=== PATIENT | male | born 1960 | race African-American/Black ===

== ENCOUNTER 2017-08-05 05:18 | Inpatient (IN) | payer OTHER ==
[~2017-08-05] VITALS: Ht 167.6 cm; Wt 90.7 kg
[2017-08-05] VITALS (16 sets, daily range): BP systolic 91–145; BP diastolic 54–93
[2017-08-05] MEDS ORDERED: ATORVASTATIN CA40 MG ORAL (06:19)
[2017-08-05] MEDS ORDERED: LISINOPRIL2.5 MG ORAL (06:19)
[2017-08-05] MEDS ORDERED: TRAMADOL HCL50 MG ORAL (06:19)
[2017-08-05] MEDS ORDERED: Surgicel 4in x 8in TOPIC ONE (06:34)
[2017-08-05] MEDS ORDERED: Thrombin 5000 units TOPIC ONE (06:34)
[2017-08-05] MEDS ORDERED: Vancomycin 1gm inj IVPB ONE (06:35)
[2017-08-05] MEDS ORDERED: Bacitracin 50000 Units Vial ONE (06:35)
[2017-08-05] MEDS ORDERED: Ropivacaine 5mg/ml Vial 30ml INJ ONE (06:35)
[2017-08-05] MEDS ORDERED: NS Irrig 1000ml ONE (07:00)
[2017-08-05] MEDS ORDERED: Glycopyrrolate 0.2mg/ml 1ml Vial ONE (07:00)
[2017-08-05] MEDS ORDERED: Ketorolac 30mg Inj ONE (07:00)
[2017-08-05] MEDS ORDERED: Zemuron 50mg/5ml Inj IV ONE (07:00)
[2017-08-05] MEDS ORDERED: Phenylephrine 10mg/ml Vial ONE (07:00)
[2017-08-05] MEDS ORDERED: Lidocaine 1% MPF 10mg/ml 5ml ONE (07:00)
[2017-08-05] MEDS ORDERED: Dexamethasone 4mg/ml vial ONE (07:00)
[2017-08-05] MEDS ORDERED: Morphine Sulfate 10mg/ml Inj ONE (07:00)
[2017-08-05] MEDS ORDERED: Sodium Chloride 10ml vial INJ ONE (07:00)
[2017-08-05] MEDS ORDERED: Propofol 200mg/20ml IV ONE (07:00)
[2017-08-05] MEDS ORDERED: Succinylcholine 20mg/ml 10ml vial ONE (07:00)
[2017-08-05] MEDS ORDERED: ceFAZolin sod 2 GM in D5W 110 ML IVPB ONE (07:00)
[2017-08-05] MEDS ORDERED: Sterile Water Irrig 1000ml IRRIG ONE (07:00)
[2017-08-05] MEDS ORDERED: Midazolam 2mg/2ml Inj ONE (07:00)
[2017-08-05] MEDS ORDERED: fentaNYL 100 mcg/2 mL IV ONE (07:00)
[2017-08-05] MEDS ORDERED: Neostigmine 1mg/ml 10ml Inj ONE (07:00)
[2017-08-05] MEDS ORDERED: LR 1000ml ONE (07:00)
[2017-08-05] MEDS ORDERED: ceFAZolin 2gm/D5W 50ml Premix IV ONE (07:00)
[2017-08-05] MEDS ORDERED: Propofol 1,000mg/ 100ml btl IV ONE (07:00)
--- NOTE | 2017-08-05 07:13 | Pre-Procedure Note/Attestation ---
Pre-Procedure Note/Attestation Complete Prior to Procedure Planned Procedure: not applicable Procedure Narrative: Cervical 56 artifiical disc replacement and 67 Anterior cervical discectomy and fusion vs Cervical 67 artifiical disc replacement and 56 Anterior cervical discectomy and fusion Indications for Procedure Pre-Operative Diagnosis: herniation C45,56,67 Attestation I attest that I discussed the nature of the procedure; its benefits; risks and complications; and alternatives (and the risks and benefits of such alternatives ), prior to the procedure, with the patient (or the patient's legal corporate sales representative). I attest that, if there was a reasonable possibility of needing a blood transfusion, the patient (or the patient's legal corporate sales representative) was given the [place] [facility] [employer] [facility] standardized written summary, pursuant to the [place] Blood Safety Act ([place] Health and Safety Code # 1645, as amended). I attest that I re-evaluated the patient just prior to the surgery and that there has been no change in the patient's H&P, except as documented below: FLYNN GIBBS Aug 05, 2017 07:13
[2017-08-05] MEDS ORDERED: NS w/KCl 20mEq 1,000 ML IV SCH (07:14)
--- NOTE | 2017-08-05 07:14 | Brief Operative Note ---
Immediate Post Operative Note Operative Note Chief Complaint: neck pain bilateral hand numbness Pre-op Diagnosis: herniation C45,56,67 Procedure: Cervical 56 artifiical disc replacement and 67 Anterior cervical discectomy and fusion Post-op Diagnosis: same as pre-op Findings: consistent w/pre-op dx studies Surgeon: Jamil 911 Telecommunicator: Jody Anesthesiologist: RYAN Anesthesia: general Specimen: none Complications: none Estimated Blood Loss: minimal Drains: none Implant(s) used?: Yes - prodisc c sz5, interlock sz 6 FLYNN GIBBS Aug 05, 2017 07:14
[2017-08-05] MEDS ORDERED: Norco 5mg/325mg tab ORAL PRN ×2 (07:15→12:00)
[2017-08-05] MEDS ORDERED: Naloxone 0.4mg/ml Inj IVP PRN ×2 (07:15→12:00)
[2017-08-05] MEDS ORDERED: Norco 7.5mg/325mg tab ORAL PRN ×3 (07:15→12:00)
[2017-08-05] MEDS ORDERED: Chloraseptic Spray 20mL Bottle ORAL PRN ×2 (07:15→12:00)
[2017-08-05] MEDS ORDERED: HYDROmorphone 1mg/ml Carpuject SUBQ PRN ×2 (07:15→12:00)
[2017-08-05] MEDS ORDERED: HYDROmorphone 1mg/ml Carpuject IVP PRN ×2 (07:15→12:00)
[2017-08-05] MEDS ORDERED: Metoclopramide 10mg/2ml Inj IVP PRN ×2 (07:15→12:00)
[2017-08-05] MEDS ORDERED: LR 1000ml 1,000 ML IVLG SCH (08:25)
--- NOTE | 2017-08-05 08:25 | Anethesia Preoperative Eval ---
Anesthesia Pre-op PMH/ROS General Date of Evaluation: Aug 05, 2017 Time of Evaluation: 07:02 Anesthesiologist: Stephen ASA Score: ASA 2 Mallampati Score Class I : Soft palate, uvula, fauces, pillars visible Class II: Soft palate, uvula, fauces visible Class III: Soft palate, base of uvula visible Class IV: Only hard plate visible Mallampati Classification: Class III Surgeon: Jamil Diagnosis: Cervical radiculopathy Surgical Procedure: ACDF C5-C7 Anesthesia History: none Family History: no anesthesia problems Allergies: Coded Allergies: No Known Allergies (Unverified , 08/04/17) Medications: see eMAR Past Medical History Cardiovascular: Reports: HTN, Denies: CAD, [place], valve dz, arrhythmia, other Pulmonary: Denies: asthma, COPD, [place], other Gastrointestinal/Genitourinary: Reports: GERD, Denies: CRI, ESRD, other Neurologic/Psychiatric: Reports: other - chronic pain, Denies: dementia, CVA, depression/anxiety, TIA Endocrine: Denies: DM, hypothyroidism, steroids, other HEENT: Denies: cataract (L), cataract (R), glaucoma, [place] (L), [place] (R), other Hematology/Immune: Denies: anemia, DVT, bleeding disorder, other Musculoskeletal/Integumentary: Denies: OA, RA, DJD, DDD, edema, other Other: other - overweight PMH Narrative: as above PSxH Narrative: Posterior cervical fusion, knee scope Anesthesia Pre-op Phys. Exam Physician Exam Last Vital Signs Date Time Temp Pulse Resp B/P (MAP) Pulse Ox O2 Delivery O2 Flow Rate FiO2 08/05/17 06:04 97.9 46 18 145/83 100 Room Air Constitutional: NAD Neurologic: CN 2-12 intact Cardiovascular: RRR, no M/R/G Respiratory: CTA Gastrointestinal: S/NT/ND Airway Exam Mallampati Score: Class III MO: limited Neck: Stiff restricted movements ROM: limited Teeth: missing Dentures: no upper, no lower Anesthesia Pre-op A/P Labs see chart Studies Pre-op Studies: EKG - NSR Risk Assessment & Plan Assessment: ASA 2 Plan: GA with ETT Neuromonitoring Status Change Before Surgery: No Pre-Antibiotics Drug: Ancef 2 gr. Given Within 1 Hr of Incision: Yes Time Given: 07:48 JOSELIN EVANS M.D. Aug 05, 2017 08:25
[2017-08-05] MEDS ORDERED: Midazolam 2mg/2ml Inj IVP PRN (08:30)
[2017-08-05] MEDS ORDERED: Hydromorphone 0.5mg/0.5ml inj IVP PRN (08:30)
[2017-08-05] MEDS ORDERED: DiphenhydrAMINE 50mg/ml Inj IVP PRN (08:30)
[2017-08-05] MEDS ORDERED: Meperidine 50mg/ml Inj(FOR RIGORS ONLY) IV PRN (08:30)
[2017-08-05] MEDS ORDERED: Ketorolac 30mg Inj IV PRN (08:30)
[2017-08-05] MEDS ORDERED: Docusate 100mg cap ORAL SCH (09:00)
--- NOTE | 2017-08-05 11:04 | Immediate Post-Op Evaluation ---
Immediate Post-Op Evalulation Immediate Post-Op Evalulation Procedure: ACDF C5-6 C6-7 Date of Evaluation: Aug 05, 2017 Time of Evaluation: 11:02 IV Fluids: 800 Blood Products: none Estimated Blood Loss: 50 Urinary Output: 350 Blood Pressure Systolic: 93 Blood Pressure Diastolic: 54 Pulse Rate: 77 Respiratory Rate: 20 O2 Sat by Pulse Oximetry: 100 Temperature (Fahrenheit): 97.5 Pain Score (1-10): 2 Nausea: No Vomiting: No Complications none Patient Status: reacts, patent, extubated, none Hydration Status: adequate JOSELIN EVANS M.D. Aug 05, 2017 11:04
[2017-08-05] MEDS ORDERED: Dexamethasone 4mg/ml vial IVP SCH ×2 (12:00→14:30)
[2017-08-05] MEDS ORDERED: Milk of Magnesia 30ml Ud ORAL PRN (12:00)
[2017-08-05] MEDS: NS w/KCl 20mEq 1,000 ML IV SCH ×2 (13:54→23:20)
--- NOTE | 2017-08-05 13:55 | Consultation ---
History of Present Illness General Date patient seen: Aug 05, 2017 Time patient seen: 13:55 Chief Complaint: intractable neck pain w/ bilateral hand numbness Referring physician: Dr. Negron Reason for Consultation: med johny Present Illness HPI 56y/o male with pmh of HTN, HLD, cervical disc herniation who presents s/p cervical 56 artifiical disc replacement and 67 Anterior cervical discectomy and fusion earlier today. No periop or postop complications. Postop pain appears well controlled. Denies f/c, n/v, d/c, chest pain, SOB. Allergies: Coded Allergies: No Known Allergies (Unverified , 08/04/17) Medication History Scheduled Atorvastatin Calcium* (Atorvastatin Calcium*), 40 MG ORAL BEDTIME, (Reported) Lisinopril* (Lisinopril*), 5 MG ORAL DAILY, (Reported) Scheduled PRN Tramadol Hcl* (Ultram*), 50 MG ORAL PRN PRN for For Pain, (Reported) Patient History History Provided By: Patient, Medical Record, PMD Healthcare decision maker judi micki(sister) Resuscitation status Full Code Advanced Directive on File No Past Medical/Surgical History Past Medical/Surgical History: (1) HTN (hypertension) (2) HLD (hyperlipidemia) (3) GERD (gastroesophageal reflux disease) (4) HNP (herniated nucleus pulposus), cervical Family History Family History: (1) No significant family history Social History Social History: (1) No significant social history Review of Systems ROS Narrative CONSTITUTIONAL: No weight loss, fever, chills, weakness or fatigue. HEENT: Eyes: No visual loss, blurred vision, double vision or yellow sclerae. Ears, Nose, Throat: No hearing loss, sneezing, congestion, runny nose, +sore throat. SKIN: No rash or itching. CARDIOVASCULAR: No chest pain, chest pressure or chest discomfort. No palpitations or edema. RESPIRATORY: No shortness of breath, cough or sputum. GASTROINTESTINAL: No anorexia, nausea, vomiting or diarrhea. No abdominal pain or blood. NEUROLOGICAL: No headache, dizziness, syncope, paralysis, ataxia, numbness or tingling in the extremities. No change in bowel or bladder control. MUSCULOSKELETAL: No muscle, back pain, joint pain or stiffness. HEMATOLOGIC: No anemia, bleeding or bruising. LYMPHATICS: No enlarged nodes. No history of splenectomy. PSYCHIATRIC: No history of depression or anxiety. ENDOCRINOLOGIC: No reports of sweating, cold or heat intolerance. No polyuria or polydipsia. ALLERGIES: No history of asthma, hives, eczema or rhinitis. Physical Exam Physical Exam Narrative General: alert, cooperative, no distress, appears stated age Head: normocephalic, without obvious abnormality, atraumatic Eyes: conjunctivae/corneas clear. PERRL, EOM's intact Throat: lips, mucosa, and tongue normal. MMM Neck: supple, symmetrical, trachea midline, and no JVD Lungs: clear to auscultation bilaterally Heart: regular rate and rhythm, S1, S2 normal, no murmur, click, rub or gallop Abdomen: soft, non-tender, non-distended, bowel sounds normal; no masses or organomegaly Extremities: extremities normal, atraumatic, no cyanosis or edema Pulses: 2+ and symmetric Skin: skin color, texture, turgor normal; no rashes or lesions Dressing c/d/i Neurologic: grossly normal, no focal deficits Last 24 Hour Vital Signs Date Time Temp Pulse Resp B/P (MAP) Pulse Ox O2 Delivery O2 Flow Rate FiO2 08/05/17 13:00 98.0 75 20 125/75 99 Nasal Cannula 2.0 08/05/17 12:35 98.0 72 23 115/73 99 Nasal Cannula 3.0 08/05/17 12:25 79 23 124/71 99 Nasal Cannula 3.0 08/05/17 12:10 63 14 110/60 100 Nasal Cannula 3.0 08/05/17 11:55 63 14 115/60 100 Nasal Cannula 3.0 08/05/17 11:40 61 17 110/56 100 Nasal Cannula 3.0 08/05/17 11:25 62 17 113/54 100 Nasal Cannula 3.0 08/05/17 11:10 80 17 110/62 100 Nasal Cannula 3.0 08/05/17 11:04 77 20 100 08/05/17 11:02 72 16 93/54 100 Simple Mask 6.0 08/05/17 10:57 84 19 91/57 100 Simple Mask 6.0 08/05/17 10:52 97.5 84 23 103/61 100 Simple Mask 6.0 08/05/17 06:04 97.9 46 18 145/83 100 Room Air Intake and Output 08/05/17 08/06/17 19:00 07:00 Intake Total 1000 ml Output Total 400 ml Balance 600 ml Intake IV Total 1000 ml Output Urine Total 350 ml Estimated Blood Loss 50 ml Height (Feet): 5 Height (Inches): 6.00 Weight (Pounds): 200 Medications Current Medications Medications (Trade) Dose Ordered Sig/Francisca Route PRN Reason Start Time Stop Time Status Last Admin Dose Admin Acetaminophen (Tylenol) 650 mg Q4H PRN ORAL headache or temp>101 08/05/17 12:00 09/04/17 11:59 Acetaminophen/ Hydrocodone Bitart ([place] 5/325) 1 tab Q3H PRN ORAL pain score 1-3 08/05/17 12:00 08/12/17 11:59 Acetaminophen/ Hydrocodone Bitart ([place] 7.5/325) 1 ea Q3H PRN ORAL pain score 4-6 08/05/17 12:00 08/12/17 11:59 Acetaminophen/ Hydrocodone Bitart ([place] 7.5/325) 2 ea Q3H PRN ORAL pain scale 7-10 08/05/17 12:00 08/12/17 11:59 Acetazolamide (Diamox 500mg Inj) 250 mg EVERY 6 HOURS IVP 08/05/17 12:00 09/04/17 11:59 UNV Carisoprodol (Soma) 350 mg TIDPRN PRN ORAL SPASM 08/05/17 12:00 09/04/17 11:59 Cefazolin Sodium 1 gm/Dextrose 55 ml @ 110 mls/hr Q8H IV 08/05/17 16:00 08/06/17 08:29 Cetylpyridinium Chloride (Cepacol) 1 lozenge EVERY 2 HOURS PRN JYOTI To Patient Comfort 08/05/17 12:00 09/04/17 11:59 Dexamethasone Sodium Phosphate (Decadron 4mg/ml vial) 4 mg Q6H IVP 08/05/17 16:30 08/06/17 10:31 Diphenhydramine HCl (Benadryl) 25 mg Q15M PRN IVP Itching 08/05/17 08:30 08/05/17 14:00 Docusate Sodium (Colace) 100 mg TWICE A DAY ORAL 08/05/17 18:00 09/04/17 17:59 Hydromorphone HCl (Dilaudid) 0.5 mg Q5M PRN IVP Severe Pain (Pain Scale 7-10) 08/05/17 08:30 08/05/17 14:00 Hydromorphone HCl (Dilaudid) 1 mg Q2H PRN IVP Breakthrough Pain 08/05/17 12:00 08/12/17 11:59 Hydromorphone HCl (Dilaudid) 1 mg Q4H PRN SUBQ Mild Pain (Pain Scale 1-3) 08/05/17 12:00 08/12/17 11:59 Hydromorphone HCl (Dilaudid) 2 mg Q3H PRN SUBQ Severe Pain (Pain Scale 7-10) 08/05/17 12:00 08/12/17 11:59 Hydromorphone HCl (Dilaudid) 2 mg Q4H PRN SUBQ Moderate Pain (Pain Scale 4-6) 08/05/17 12:00 08/12/17 11:59 Ketorolac Tromethamine (Toradol 30mg) 30 mg Q1H PRN IV Severe Breakthru Pain (>7) 08/05/17 08:30 08/05/17 14:00 Magnesium Hydroxide (Mom) 30 ml QIDPRN PRN ORAL Constipation 08/05/17 12:00 09/04/17 11:59 Meperidine HCl (Demerol) 25 mg Q15M PRN IV chills 08/05/17 08:30 08/05/17 14:00 08/05/17 11:23 Metoclopramide HCl (Reglan) 10 mg Q6H PRN IVP Nausea & Vomiting 08/05/17 12:00 09/04/17 11:59 Midazolam HCl (Versed 2mg/2ml vial) 1 mg Q15M PRN IVP For Anxiety 08/05/17 08:30 08/05/17 14:00 Naloxone HCl (Narcan) 0.1 mg PRN PRN IVP RR<12/min, pt unarousable 08/05/17 12:00 09/04/17 11:59 Ondansetron HCl (Zofran) 4 mg Q1H PRN IVP Nausea & Vomiting 08/05/17 08:30 08/05/17 14:00 Ondansetron HCl (Zofran) 4 mg Q6H PRN IVP Nausea & Vomiting 08/05/17 12:00 09/04/17 11:59 Phenol/Menthol (Chloraseptic) 1 spray Q3H PRN ORAL To Patient Comfort 08/05/17 12:00 09/04/17 11:59 Prochlorperazine (Compazine) 10 mg Q6H PRN IVP Nausea & Vomiting 08/05/17 12:00 09/04/17 11:59 Sodium Chloride 1,000 ml @ 100 mls/hr Q10H IV 08/05/17 14:00 09/04/17 13:59 Temazepam (Restoril) 15 mg HSPRN PRN ORAL Insomnia 08/05/17 12:00 08/12/17 11:59 Assessment/Plan Problem List: (1) HNP (herniated nucleus pulposus), cervical ICD Codes: M50.20 - Other cervical disc displacement, unspecified cervical region SNOMED: 20303210 (2) HLD (hyperlipidemia) ICD Codes: E78.5 - Hyperlipidemia, unspecified SNOMED: 29027099 (3) HTN (hypertension) ICD Codes: I10 - Essential (primary) hypertension SNOMED: 15010289 (4) GERD (gastroesophageal reflux disease) ICD Codes: K21.9 - Gastro-esophageal reflux disease without esophagitis SNOMED: 164893160 Status: stable Assessment/Plan Appreciate surgery rec's s/p cervical 5-6 artificial disc replacement and 67 Anterior cervical discectomy and fusion on 08/05/17 Post operative recommendations include: - encourage mobilization/ambulation - encourage incentive spirometry to optimize pulmonary hygiene - DVT/GI prophylaxis as appropriate - PT/OT/ST - pain control, supportive care, bowel regimen Cont home meds: lipitor, lisinopril D/w pt, RN, SW/CM, surgery regarding mgmt and dispo Faviola Qiu M.D. Aug 05, 2017 13:55
[2017-08-05] MEDS ORDERED: ceFAZolin sod 1 GM in D5W 55 ML IV SCH (14:00)
[2017-08-05] MEDS: acetaZOLAMIDE 500mg Inj IVP SCH ×2 (15:10→21:54)
--- NOTE | 2017-08-05 15:34 | Diagnostic Imaging Report ---
Indication: PAIN, intraoperative Technique: Intraoperative images Comparison: None Findings: Initial localizer image demonstrates a needle projected over the C5 vertebral body. Subsequent images demonstrate a localizer tool at the C7-T1 disc. Subsequent images document anterior fusion at C5-6 and placement of a disc prosthesis at C6-7. Impression: Intraoperative imaging, as described
[2017-08-05] MEDS: ceFAZolin sod 1 GM in D5W 55 ML IV SCH ×2 (16:10→23:20)
[2017-08-05] MEDS: Dexamethasone 4mg/ml vial IVP SCH ×2 (16:10→20:35)
[2017-08-05] MEDS ORDERED: PERCOCET 5-3251 EACH ORAL (17:04)
[2017-08-05] MEDS ORDERED: ATIVAN1 MG ORAL (17:05)
[2017-08-05] MEDS ORDERED: CIPRO500 MG PO (17:06)
[2017-08-05] MEDS: Docusate 100mg cap ORAL SCH (17:18)
[2017-08-05] MEDS: Atorvastatin 20mg tab ORAL SCH (20:35)
[2017-08-05] MEDS: Norco 7.5mg/325mg tab ORAL PRN (23:21)
[2017-08-06] VITALS: BP 136/94
[2017-08-06] MEDS: acetaZOLAMIDE 500mg Inj IVP SCH ×4 (03:39→21:01)
[2017-08-06] MEDS: Norco 7.5mg/325mg tab ORAL PRN ×3 (03:39→15:07)
--- NOTE | 2017-08-06 03:45 | Operative Note - Dictated ---
DATE OF OPERATION: 08/05/2017 SURGEON: Gary Negron M.D., orthopedic spine surgeon. Internist Medical Doctor Md: Whitney PENA PREOPERATIVE DIAGNOSES: 1. Intractable neck pain. 2. Radiculopathy. 3. Herniation, C6-C7. 4. Neural foraminal stenosis, C6-C7. 5. Stenosis. POSTOPERATIVE DIAGNOSES: 1. Intractable neck pain. 2. Radiculopathy. 3. Herniation, C6-C7. 4. Neural foraminal stenosis, C6-C7. 5. Stenosis. PROCEDURE PERFORMED: 1. Anterior cervical discectomy and artificial disc replacement of C6-C7 using a Synthes Prodisc C size 5 height. 2. Anterior cervical discectomy and fusion of C56 with nuvasive interlock c and size 6 cage osteocell 1cc 2. Use of intraoperative microscope. 3. Motor evoked potential monitoring. 4. Somatosensory evoked potential monitoring. 5. Supervision and interpretation of fluoroscopy. COMPLICATIONS: egress of CSF fluid from C5-C6. ANESTHESIA: General. ANESTHESIOLOGIST: Ki Mitchell M.D. ESTIMATED BLOOD LOSS: Less than 100 mL. INDICATIONS FOR SURGERY: This patient is a 56-year-old male who has history of diagnoses as listed above. As a result of this, the patient sustained intractable neck pain, radiculopathy, herniation at C5-C6 and C6-C7, neural foraminal stenosis at C5-C6 and C6-C7, and stenosis. We tried a course of conservative management but despite this course, there was still a significant component of persistent, recalcitrant neck pain and arm pain. The MRI demonstrated significant neural foraminal compromise secondary to disc herniations at C5-C6 and C6-C7. We had a long discussion with Jorje regarding the risks and benefits of surgery. Our discussion included but was not limited to nonoperative management, chiropractic management, another epidural steroid injection as well as definitive management in the form of surgery. We recommended anterior cervical discectomy and artificial disc replacement at C6-C7 and anterior cervical discectomy and fusion at C5-C6 as final definitive management. We reviewed the risks and benefits of surgery with the patient. Our discussion included a comprehensive review of the clinical issues and the nature of the clinical decision. We reviewed the alternatives, including doing nothing. The patient elected to proceed accordingly with anterior cervical discectomy and artificial disc replacement of C6-C7 using a Synthes Prodisc C size 5 height and anterior cervical discectomy and fusion of C5-C6 using Nuvasive Interlock Cage, size 6, a total of six 13 mm screws, with the insertion of allograft Osteocel bone. We had a long discussion regarding the risks, alternatives, and benefits of surgery. Our description of the risks included a discussion in person as well as a signed consent which detailed all pertinent risks from the procedure itself. Briefly, our discussion included but was not limited to infection, bleeding, pseudarthrosis, spinal cord injury, neurovascular injury, dural tear, CSF leak, neuropathy, paralysis, permanent weakness/drop foot/drop arm, paresthesias, blindness, palsy, and weakness. The patient understood there may be a need for a revision surgery or additional procedures. Approach-related complications including dysphonia, dysphagia, blindness, permanent vocal cord and neural injury, hematoma, swallowing and breathing difficulty. Medical complications were reviewed including liver, kidney, shock, cardiopulmonary failure, anesthesia complications including , swelling, damage to the musculature, larynx/voice injury or loss, esophagus/throat, trachea, blood vessels and muscles/muscular sprain and lungs/pneumothorax during this surgical procedure; injury to deeper structures may be temporary or permanent. After this review of risks, the patient understood these and elected to proceed. A written and verbal consent was given. We discussed the pros and cons of all the alternatives. We discussed the uncertainties associated with the decision. Afterwards, I assessed the patient's understanding and explored their preferences. All questions were answered and no guarantees were given. Medical clearance was obtained prior to surgery. INTRAOPERATIVE FINDINGS: A broad-based disc herniation which was found posterior to a tear/rent in the posterior longitudinal ligament at C6-C7 causing a considerable amount of neural foraminal stenosis with significant encroachment on the neural foramina and spinal cord. There was a large tear and rent at C5-C6 on the left side which had migrated posterior to the longitudinal ligament and impacted, almost thinned the thecal sac itself, removal of which caused an egress of cerebrospinal fluid. At C6-C7, there was a large tear and rent in the posterior longitudinal ligament that was acute in nature and demonstrated herniated pulposus putting pressure on the neural foramina bilaterally . DESCRIPTION OF PROCEDURE: Under the benefit of general endotracheal anesthesia and with the assistance of the entire operative team, the patient was moved from the [facility] onto the operative table in the supine position. The head was secured and carefully positioned appropriately. Bilateral arms were secured with GelPads and foam and all bony prominences were padded. For the bilateral lower extremity, SCD and SIA hose were placed for DVT prophylaxis. A surgical timeout was called which corroborated our planned procedure of anterior cervical discectomy and artificial disc replacement of C6-C7 using a Synthes Prodisc C size 5 height. Preoperative antibiotics were administered within 30 minutes of the incision for antibiotic prophylaxis. Using lateral fluoroscopic radiography, the operative levels were delineated. Next the wound was prepped and draped with Chlorhexidine and sterile drapes. An incision was based on lateral fluoroscopy and we centered our incision at the C6-C7 interspace and next using a standard Lees-Singleton anterior-based approach, the incision was taken down through the skin and subcutaneous tissues until the vertebral bodies and their corresponding disc spaces were visualized. A needle was placed into the interspace to confirm placement of the operative interspace and we performed the remainder of procedure under microscopic visualization. Next, using a bipolar and Bovie cautery to ensure meticulous hemostasis, the longus colli was mobilized bilaterally and retractors were placed deep to the longus colli bilaterally to address retraction. Next we turned our attention to the radical anterior discectomy. This was initially performed at C6-C7 first by using a #15 blade scalpel followed by narrow pituitaries and a Microsect 5-B curette was used to denude the endplate of all cartilaginous tissue. Next using a Gig[employer] David AM8 drillbit, the vertebral endplates were denuded in a ofph-em-cixd and fshjg-uk-irnew fashion, and ultimately the posterior uncinate joints bilaterally and posterior osteophytic lips and margins causing central and lateral impingement were carefully denuded until visualization of the posterior longitudinal ligament was possible. An endplate preparation was performed in the exact same fashion using an intervertebral offset machine operator, sequential distraction was obtained throughout the disc space. We saw a tear/rent in the PLL and this was carefully mobilized and dissected using a Microsect 1-B curette until we visualized a broad-based disc herniation with compression of the spinal cord as well as neural foramina which was more significant on the left side. This neural foraminal compression was carefully resected using a Kerrison-1 and Kerrison-2 rongeurs until complete decompression of the spinal cord was visualized and complete decompression of the neural foramina and nerve root therein as well as the axilla and lateral margin of the nerve root was visualized and subsequently completely decompressed. We next turned our attention towards trialing our implant within the disc space. We initially tried size 5 and the Prodisc Cervical spacer fit well in regard to depth and width. This implant was opened and prepared. Next under direct visualization, I confirmed excellent fit in respect to the anterior and posterior vertebral bodies, the uncinate joints, and in regard to toggle. Once satisfied with this placement on serial AP and lateral fluoroscopy, I turned my attention towards cutting our carson. These were cut in the bones using a reciprocating drill and afterwards all free fragments of bone were irrigated. Next FloSeal was placed into the interspace and the implant was inserted using fluoroscopic guidance. Next the Synthes Prodisc C size 5 ADR was then carefully advanced and secured into the intervertebral space under direct visualization and with supervision of AP and lateral fluoroscopic views. SECOND LEVEL: 1. Anterior cervical discectomy and fusion of C5-C6 using Nuvasive Interlock Cage, size 6, a total of six 13 mm screws, with the insertion of allograft Osteocel bone. Next we turned our attention to the radical anterior discectomy. This was initially performed at C5-C6 first by using a #15 blade scalpel followed by narrow pituitaries and a micro-sect 5-B curette was used to denude the endplate of all cartilaginous tissue. Next using a Thucy David AM8 drillbit, the endplates were denuded in a almn-lb-lzro and layer by layer fashion, and ultimately the posterior uncinate joints bilaterally and posterior osteophytic lips and margins causing central and lateral impingement were carefully denuded until visualization of the posterior longitudinal ligament was possible. An endplate preparation was performed in the exact same fashion using an intervertebral offset machine operator, sequential distraction was obtained throughout the disc space. We saw a tear/rent in the PLL and this was carefully mobilized and dissected using a micro-set 1-B curette until we visualized a broad-based disc herniation with compression of the spinal cord as well as neural foramina which was more significant on the left. This neural foraminal compression was carefully resected using a Kerrison-1 and Kerrison-2 rongeurs until complete decompression of the spinal cord was visualized and complete decompression of the neural foramina and nerve root therein as well as the axilla and lateral margin of the nerve root was visualized and subsequently completely decompressed. At C5-C6, there was such severe pressure and it appeared that the disc material upon its removal from the C5-C6 interspace on the patient's left-hand side, upon removal of the herniated pulposus, there was noted to be a small egress of cerebrospinal fluid. There was no significant drainage of fluid present. This was addressed with a small piece of Duragen overlying with a larger piece of Duragen followed by less than 1cc of Tisseel and watertight closure was accomplished and I noted no further egress of CSF fluid was noted. We next turned our attention towards trialing our implant within the disc space. We initially tried size 5 and afterwards size 6 trial from the [employer], which appeared to be appropriate under AP and lateral fluoroscopy as well as in terms of its height, depth, width, and lack of toggle. The PEEK polyetheretherketone interbody cages were then both packed with allograft bone from Osteocel and local autograft bone matrix. Next these were then carefully advanced and secured into their intervertebral spaces under direct visualization and with supervision of AP and lateral fluoroscopic views. We next turned our attention towards plating. Plating was performed with WiWide Interlock-C plating system, a total of six screws, size 13 mm length were inserted and confirmed under AP and lateral fluoroscopy and confirmed to be in excellent position. After a finger sweep, we confirmed removal of all sponges. The retractor was removed and we next turned our attention to meticulous hemostasis with FloSeal and bipolar cautery. After the sponge and needle count was again found to be correct with our second count, we next turned our attention to closure. The wound was again copiously irrigated with antibiotic impregnated saline. Closure consisted of 4-0 clear nylon for the platysma, and 6-0 clear nylon for the superficial skin. Final skin closure and dressings consisted of Dermabond. Prior to final closure, a final radiograph was obtained which demonstrated the hardware was intact with excellent position throughout. The patient tolerated the procedure well. The patient was carefully extubated after the conclusion of surgery. We discussed the findings of the surgery with the family upon completion of the case. At this point, the patient was transferred to the spine floor for further observation. The patient tolerated the procedure well. The patient was carefully extubated after the conclusion of surgery. We discussed the findings of the surgery with the family upon completion of the case. At this point, the patient was transferred to the spine floor for further observation. Gary Negron M.D. DR: Kaitlin JOB#: [id number] CC: ELAINE
[2017-08-06 04:20] VITALS: BP 125/83
[2017-08-06] MEDS: Dexamethasone 4mg/ml vial IVP SCH ×2 (05:28→10:23)
[2017-08-06 08:00] VITALS: BP 124/69
[2017-08-06] MEDS: ceFAZolin sod 1 GM in D5W 55 ML IV SCH (08:25)
[2017-08-06] MEDS: Lisinopril 2.5mg tab ORAL SCH (08:27)
[2017-08-06] MEDS: Docusate 100mg cap ORAL SCH ×2 (08:27→18:19)
[2017-08-06] MEDS: NS w/KCl 20mEq 1,000 ML IV SCH ×3 (10:00→20:41)
[2017-08-06 12:00] VITALS: BP 157/89
--- NOTE | 2017-08-06 12:26 | General Progress Note ---
Assessment/Plan Problem List: (1) HNP (herniated nucleus pulposus), cervical ICD Codes: M50.20 - Other cervical disc displacement, unspecified cervical region SNOMED: 91466046 (2) HLD (hyperlipidemia) ICD Codes: E78.5 - Hyperlipidemia, unspecified SNOMED: 68139034 (3) HTN (hypertension) ICD Codes: I10 - Essential (primary) hypertension SNOMED: 61820739 (4) GERD (gastroesophageal reflux disease) ICD Codes: K21.9 - Gastro-esophageal reflux disease without esophagitis SNOMED: 384214991 Status: stable Assessment/Plan Appreciate surgery rec's s/p cervical 5-6 artificial disc replacement and 67 Anterior cervical discectomy and fusion on 08/05/17 Post operative recommendations include: - encourage mobilization/ambulation - encourage incentive spirometry to optimize pulmonary hygiene - DVT/GI prophylaxis as appropriate - PT/OT/ST - pain control, supportive care, bowel regimen Cont home meds: lipitor, lisinopril DC planning D/w pt, RN, SW/CM, surgery regarding mgmt and dispo Subjective Date patient seen: Aug 06, 2017 Time patient seen: 12:26 ROS Limited/Unobtainable: No Constitutional: Reports: no symptoms HEENT: Reports: no symptoms Cardiovascular: Reports: no symptoms Respiratory: Reports: no symptoms Gastrointestinal/Abdominal: Reports: no symptoms Genitourinary: Reports: no symptoms Neurologic/Psychiatric: Reports: no symptoms Endocrine: Reports: no symptoms Hematologic/Lymphatic: Reports: no symptoms Allergies: Coded Allergies: No Known Allergies (Unverified , 08/04/17) All Systems: reviewed and negative except above Subjective No acute o/n events POD#1 Pain controlled. Tolerating PO. Denies f/c, n/v, d/c, chest pain, SOB Passing gas Objective Last 24 Hour Vital Signs Date Time Temp Pulse Resp B/P (MAP) Pulse Ox O2 Delivery O2 Flow Rate FiO2 08/06/17 08:27 124/67 08/06/17 08:00 96.0 67 17 124/69 98 Room Air 08/06/17 04:38 97.4 08/06/17 04:25 Room Air 08/06/17 04:20 97.4 71 17 125/83 95 08/06/17 00:00 97.6 84 20 136/94 97 Room Air 08/05/17 20:40 Room Air 08/05/17 20:39 97.7 59 18 129/75 96 08/05/17 16:01 98 Nasal Cannula 2.0 08/05/17 16:01 97.3 91 20 139/93 98 08/05/17 15:05 98.0 08/05/17 14:30 98.7 76 19 128/87 100 08/05/17 14:30 100 Nasal Cannula 2.0 08/05/17 13:30 97.7 52 19 125/79 100 08/05/17 13:30 100 Nasal Cannula 2.0 08/05/17 13:00 98.0 75 20 125/75 99 Nasal Cannula 2.0 08/05/17 12:35 98.0 72 23 115/73 99 Nasal Cannula 3.0 Height (Feet): 5 Height (Inches): 6.00 Weight (Pounds): 200 Objective General: alert, cooperative, no distress, appears stated age Head: normocephalic, without obvious abnormality, atraumatic Eyes: conjunctivae/corneas clear. PERRL, EOM's intact Throat: lips, mucosa, and tongue normal. MMM Neck: supple, symmetrical, trachea midline, and no JVD Lungs: clear to auscultation bilaterally Heart: regular rate and rhythm, S1, S2 normal, no murmur, click, rub or gallop Abdomen: soft, non-tender, non-distended, bowel sounds normal; no masses or organomegaly Extremities: extremities normal, atraumatic, no cyanosis or edema Pulses: 2+ and symmetric Skin: skin color, texture, turgor normal; no rashes or lesions Dressing d/c/i Neurologic: grossly normal, no focal deficits Faviola Qiu M.D. Aug 06, 2017 12:26
--- NOTE | 2017-08-06 14:33 | 48 Hour Post Anesthesia Eval ---
Post Anesthesia Evaluation Procedure: ACDF C5-6 C6-7 Date of Evaluation: Aug 06, 2017 Time of Evaluation: 14:30 Blood Pressure Systolic: 145 0: 92 Pulse Rate: 67 Respiratory Rate: 16 Temperature (Fahrenheit): 98 O2 Sat by Pulse Oximetry: 99 Airway: patent Nausea: No Vomiting: No Pain Intensity: 0 Hydration Status: adequate Mental Status/LOC: patient returned to baseline Post-Anesthesia Complications: none Follow-up care needed: patient intructions given Isaac Turcios M.D. Aug 06, 2017 14:33
[2017-08-06 16:00] VITALS: BP 139/82
[2017-08-06] MEDS ORDERED: Tubing IV Secondary IV ONE (16:01)
[2017-08-06 20:00] VITALS: BP 137/89
[2017-08-06] MEDS: Atorvastatin 20mg tab ORAL SCH (20:09)
[2017-08-07] MEDS: acetaZOLAMIDE 500mg Inj IVP SCH ×2 (02:54→10:05)
[2017-08-07 04:00] VITALS: BP 155/96
--- NOTE | 2017-08-07 05:00 | Discharge Summary ---
DATE OF ADMISSION: 08/05/2017 DATE OF DISCHARGE: 08/07/2017 DATE OF ADMISSION: 08/05/2017 DATE OF DISCHARGE: 08/07/2017 PROCEDURE PERFORMED DURING ADMISSION: Anterior cervical discectomy and fusion, C5-C6, and artificial disk replacement at C6-C7. REASON FOR ADMISSION: Cervical herniated nucleus pulposus, C4-C5, C5-C6, and C6-C7. HOSPITAL COURSE/TREATMENT RENDERED: Anterior cervical discectomy and fusion, C5-C6, and artificial disk replacement at C6-C7. DISCHARGE PHYSICAL EXAMINATION: 1. The patient was ambulating with and without the assistance of physical therapy. 2. Prior to discharge home, incision was clean and dry with minimal swelling. 3. Follows commands. 4. Alert and oriented. 5. Easley discontinued, voiding. 6. Incentive spirometer at bedside. 7. IVF Hep-Locked. MOTOR: Demonstrates expected postoperative bulk and tone. Moves biceps, triceps, and deltoid musculature on command. Moves hip flexors, quadriceps, tibialis anterior, EHL, gastrocsoleus musculature on command as well. TREATMENT RENDERED: 1. Daily nursing care. 2. Physical therapy. 3. Occupational therapy. 4. Intravenous medications. 5. Oral medications. 6. Daily postoperative examinations by Spine Surgery Team. CONDITION OF PATIENT ON DISCHARGE: The condition on discharge is stable for discharge to home. DISCHARGE INSTRUCTIONS: Our specific instructions relating to physical activity, medications, diet, and follow-up care are detailed in our standard operative folder and were given to this patient prior to surgery. We will however summarize these briefly as stated below. Regarding physical activity, we would like the patient to limit their flexion, extension, and rotation. We also require a limitation on their bending, lifting, and twisting. All medication has been called in prior to surgery to their pharmacy of choice. They can resume their regular diet once tolerated. We would like them to shower and limit soaking the wound in a tub/Jacuzzi/the ocean for a period of one month or until the incision is completely healed. We will have them follow up in our office in three weeks' time for their regularly scheduled appointment. They understand to call our office tomorrow to schedule the time for their three-week followup appointment. The patient will notify us should they experience any increase in the severity of pain, redness/swelling, or drainage from their incision. Gary Negron M.D. DR: Muna JOB#: [id number] CC:
[2017-08-07] MEDS: NS w/KCl 20mEq 1,000 ML IV SCH (06:10)
[2017-08-07 08:00] VITALS: BP 136/87
[2017-08-07 08:28] VITALS: BP 136/87
[2017-08-07] MEDS: Docusate 100mg cap ORAL SCH (08:28)
[2017-08-07] MEDS: Lisinopril 2.5mg tab ORAL SCH (08:28)
[2017-08-07] MEDS: Norco 7.5mg/325mg tab ORAL PRN (08:29)
--- NOTE | 2017-08-11 22:08 | General Progress Note ---
Assessment/Plan Problem List: (1) HNP (herniated nucleus pulposus), cervical ICD Codes: M50.20 - Other cervical disc displacement, unspecified cervical region SNOMED: 15748540 (2) HLD (hyperlipidemia) ICD Codes: E78.5 - Hyperlipidemia, unspecified SNOMED: 02877059 (3) HTN (hypertension) ICD Codes: I10 - Essential (primary) hypertension SNOMED: 56232131 (4) GERD (gastroesophageal reflux disease) ICD Codes: K21.9 - Gastro-esophageal reflux disease without esophagitis SNOMED: 533952811 Status: stable Assessment/Plan Appreciate surgery rec's s/p cervical 5-6 artificial disc replacement and 67 Anterior cervical discectomy and fusion on 08/05/17 Post operative recommendations include: - encourage mobilization/ambulation - encourage incentive spirometry to optimize pulmonary hygiene - DVT/GI prophylaxis as appropriate - PT/OT/ST - pain control, supportive care, bowel regimen Cont home meds: lipitor, lisinopril DC planning, stable for d/c today per surgery D/w pt, RN, SW/CM, surgery regarding mgmt and dispo Subjective Date patient seen: Aug 07, 2017 Time patient seen: 10:00 ROS Limited/Unobtainable: No Constitutional: Reports: no symptoms HEENT: Reports: no symptoms Cardiovascular: Reports: no symptoms Respiratory: Reports: no symptoms Gastrointestinal/Abdominal: Reports: no symptoms Genitourinary: Reports: no symptoms Neurologic/Psychiatric: Reports: no symptoms Endocrine: Reports: no symptoms Hematologic/Lymphatic: Reports: no symptoms Allergies: Coded Allergies: No Known Allergies (Unverified , 08/04/17) All Systems: reviewed and negative except above Subjective No acute o/n events POD#2 Pain controlled. Tolerating PO. Denies f/c, n/v, d/c, chest pain, SOB Passing gas Objective Height (Feet): 5 Height (Inches): 6.00 Weight (Pounds): 200 Objective General: alert, cooperative, no distress, appears stated age Head: normocephalic, without obvious abnormality, atraumatic Eyes: conjunctivae/corneas clear. PERRL, EOM's intact Throat: lips, mucosa, and tongue normal. MMM Neck: supple, symmetrical, trachea midline, and no JVD Lungs: clear to auscultation bilaterally Heart: regular rate and rhythm, S1, S2 normal, no murmur, click, rub or gallop Abdomen: soft, non-tender, non-distended, bowel sounds normal; no masses or organomegaly Extremities: extremities normal, atraumatic, no cyanosis or edema Pulses: 2+ and symmetric Skin: skin color, texture, turgor normal; no rashes or lesions Dressing d/c/i Neurologic: grossly normal, no focal deficits Faviola Qiu M.D. Aug 11, 2017 22:08
== END 2017-08-07 14:37 | disposition home or self-care (01) | DRG 473 ==
LOC: SDSOVERFLO 05:18 → 3E 13:05
DX: M50.122 Cervical disc disorder at C5-C6 level with radiculopathy (principal); I10 Essential (primary) hypertension; M48.02 Spinal stenosis, cervical region; K21.9 Gastro-esophageal reflux disease without esophagitis; W17.89XS Other fall from one level to another, sequela; Z98.1 Arthrodesis status; E78.00 Pure hypercholesterolemia, unspecified
CPT/HCPCS: 36415; 72040; 76001; 86850; 86900; 86901; 87081; 94003; 94150; J2250; J2370; J2710